=== PATIENT | female | born 1965 | race Asian ===

== ENCOUNTER 2023-07-07 16:42 | Inpatient (IN) | payer BC ==
[~2023-07-07] VITALS: Ht 152.4 cm; Wt 59.9 kg
[2023-07-07 17:24] LABS: BASOPHILS # (AUTO) 0.1 K/uL (0.0-0.2); BASOPHILS % (AUTO) 0.7 % (0.0-2.0); EOSINOPHILS # (AUTO) 0.2 K/uL (0.0-0.4); EOSINOPHILS % (AUTO) 2.1 % (0.0-4.0); HEMATOCRIT 37.3 % (36-48); HEMOGLOBIN 12.6 g/dL (12.0-16.0); LYMPHOCYTES # (AUTO) 2.4 K/uL (1.0-5.5); LYMPHOCYTES % (AUTO) 31.6 % (20.5-51.5); MEAN CORPUSCULAR HEMOGLOBIN 30 pg (27-31); MEAN CORPUSCULAR HGB CONC 34 % (32-36); MEAN CORPUSCULAR VOLUME 89 fL (79.0-98.0); MONOCYTES # (AUTO) 0.6 K/uL (0.0-1.0); MONOCYTES % (AUTO) 8.2 % (1.7-9.3); NEUTROPHILS # (AUTO) 4.3 K/uL (1.8-7.7); NEUTROPHILS % (AUTO) 57.4 % (40.0-70.0); PLATELET COUNT (AUTO) 403 K/uL (130-430); RED BLOOD CELL COUNT(AUTO) 4.18 MIL/uL (4.2-6.2); RED CELL DISTRIBUTION WIDTH 13.6 % (9.0-15.0); WHITE BLOOD COUNT (AUTO) 7.5 K/uL (4.8-10.8)
[2023-07-07 17:45] LABS: PROTHROMBIN TIME 9.9 SECS (9.5-12.5)
[2023-07-07 17:47] LABS: ALBUMIN 3.5 g/dL (3.4-4.8); CALCIUM 9.7 mg/dL (8.4-11.0); CREATININE 0.62 mg/dL (0.55-1.30); POTASSIUM 4.1 mmol/L (3.5-5.1); TOTAL BILIRUBIN 0.3 mg/dL (0.0-1.0); TOTAL PROTEIN, SERUM 8.3 g/dL (6.4-8.3)
[2023-07-07 18:05] VITALS: BP_SYST 114; PULSE 66; RESP 18; TEMP 98.6; O2SAT 99
[2023-07-07] MEDS ORDERED: MORPHINE 4 MG INJ. 4 MG/ML VIAL IVP PRN (19:45)
[2023-07-07] MEDS: MORPHINE 2 MG/ML INJ. SYRINGE IVP PRN (20:09)
[2023-07-07 20:50] VITALS: BP_SYST 130; PULSE 62; RESP 18; TEMP 98; O2SAT 99
[2023-07-07] MEDS ORDERED: OXYIR5 PO (21:05)
[2023-07-07] MEDS ORDERED: ASPI-1393 PO (21:05)
[2023-07-07] MEDS ORDERED: ACET325T53 PO (21:05)
[2023-07-07] MEDS ORDERED: METH-800 PO (21:05)
[2023-07-07] MEDS ORDERED: DOCU-156 PO (21:05)
[2023-07-07] MEDS ORDERED: ONDANSETRON HCL 4 MG/2 ML VIAL IVP PRN (22:15)
[2023-07-07] MEDS ORDERED: NALOXONE HCL 0.4 MG/ML AMP (NARCAN) IVP PRN (22:15)
[2023-07-07] MEDS ORDERED: LORazepam 2 MG/ML VIAL IVP PRN (22:15)
[2023-07-07 22:22] LABS: BILIRUBIN,URINE NEGATIVE (NEGATIVE); BLOOD, URINE NEGATIVE (NEGATIVE); CLARITY/URINE CLEAR (CLEAR); COLOR,URINE YELLOW (YELLOW); GLUCOSE,URINE NEGATIVE (NEGATIVE); KETONES,URINE NEGATIVE (NEGATIVE); LEUKOCYTE ESTERASE ,URINE TRACE (NEGATIVE); NITRITE, URINE NEGATIVE (NEGATIVE); PROTEIN URINE NEGATIVE (NEGATIVE); UROBILINOGEN,URINE 0.2 (0.2-1.0)
[2023-07-07 22:28] LABS: BACTERIA,URINE MODERATE /HPF (None Seen); MUCUS,URINE 1+ /LPF (None Seen); RBC,URINE 0-3 /HPF (0-3)
[2023-07-07] MEDS: D5/0.45 NS 1,000 ML IV SCH (22:42)
[2023-07-08] VITALS (8 sets, daily range): BP systolic 123–132; PULSE 62–105; RESP 16–20; TEMP 97.8–98.2; O2SAT 94–99
[2023-07-08 05:42] LABS: BASOPHILS % (AUTO) 0.7 % (0.0-2.0); EOSINOPHILS # (AUTO) 0.2 K/uL (0.0-0.4); EOSINOPHILS % (AUTO) 2.9 % (0.0-4.0); HEMATOCRIT 35.3 % (36-48); HEMOGLOBIN 11.8 g/dL (12.0-16.0); LYMPHOCYTES # (AUTO) 1.7 K/uL (1.0-5.5); MEAN CORPUSCULAR HEMOGLOBIN 31 pg (27-31); MEAN CORPUSCULAR HGB CONC 34 % (32-36); MEAN CORPUSCULAR VOLUME 91 fL (79.0-98.0); MONOCYTES # (AUTO) 0.5 K/uL (0.0-1.0); MONOCYTES % (AUTO) 9.8 % (1.7-9.3); NEUTROPHILS # (AUTO) 2.8 K/uL (1.8-7.7); NEUTROPHILS % (AUTO) 53.6 % (40.0-70.0); PLATELET COUNT (AUTO) 376 K/uL (130-430); RED BLOOD CELL COUNT(AUTO) 3.88 MIL/uL (4.2-6.2); RED CELL DISTRIBUTION WIDTH 13.1 % (9.0-15.0); WHITE BLOOD COUNT (AUTO) 5.3 K/uL (4.8-10.8)
[2023-07-08 05:49] LABS: CALCIUM 9.4 mg/dL (8.4-11.0); CREATININE 0.71 mg/dL (0.55-1.30); POTASSIUM 4.3 mmol/L (3.5-5.1)
[2023-07-08] MEDS ORDERED: ceFAZolin SODIUM 2 GM VIAL ONE (08:12)
[2023-07-08] MEDS: fentaNYL CITRATE/PF 100 MCG/2 ML AMP ONE (09:16)
[2023-07-08] MEDS ORDERED: hydrALAZINE HCL 20 MG/ML VIAL IV PRN (11:30)
[2023-07-08] MEDS ORDERED: ONDANSETRON HCL 4 MG/2 ML VIAL IVP PRN (11:30)
[2023-07-08] MEDS ORDERED: NALOXONE HCL 0.4 MG/ML AMP (NARCAN) IVP PRN (11:30)
[2023-07-08] MEDS: HYDROmorphone 1 MG/ML INJ. CARTRIDGE IVP PRN ×2 (11:37→12:00)
[2023-07-08] MEDS: HYDROmorphone 1 MG/ML INJ. CARTRIDGE ONE (11:58)
[2023-07-08] MEDS: CEFAZOLIN 1 GM IVPB PREMIX 50 ML IV SCH (13:51)
[2023-07-09 00:11] VITALS: BP_SYST 120; PULSE 68; RESP 15; TEMP 97.2; O2SAT 99
[2023-07-09 02:20] VITALS: RESP 22; TEMP 96.8
[2023-07-09] MEDS ORDERED: NALOXONE HCL 0.4 MG/ML AMP (NARCAN) IVP PRN (07:15)
[2023-07-09 08:00] VITALS: BP_SYST 123; PULSE 67; RESP 16; TEMP 98.1; O2SAT 99
[2023-07-09] MEDS: ACETAMINOPHEN 500 MG TABLET PO PRN (08:21)
[2023-07-09] MEDS: ASPIRIN 81 MG TABLET(ECOTRIN) PO SCH (08:21)
[2023-07-09 13:00] VITALS: BP_SYST 121; PULSE 65; RESP 18; TEMP 97.2; O2SAT 97
[2023-07-09] MEDS ORDERED: HYDR-3919 PO (13:12)
[2023-07-09] MEDS ORDERED: HYDR-3927 PO (13:12)
[2023-07-09 15:01] VITALS: BP_SYST 119; PULSE 69; RESP 18; TEMP 98.3; O2SAT 99
[2023-07-09 16:01] VITALS: BP_SYST 122; PULSE 66; RESP 17; TEMP 97.8; O2SAT 98
[2023-07-09] MEDS: HYDROcodone/ACETAMIN 5-325 MG TAB (NORCO/ VICODIN) PO PRN (16:17)
== END 2023-07-09 17:15 | DRG 494 ==
LOC: SED 16:42 → SMU 19:34
PROVIDERS: ADMIT Preventive Medicine Preventive Medicine/Occupational Environmental Medicine; ATTEND Preventive Medicine Preventive Medicine/Occupational Environmental Medicine
PROC: 0YPBXYZ Removal of Other Device from Left Lower Extremity, External Approach (ICD-10-PCS; 2023-07-08)
PROC: 2W3MX1Z Immobilization of Left Lower Extremity using Splint (ICD-10-PCS; 2023-07-08)
PROC: 0QSH04Z Reposition Left Tibia with Internal Fixation Device, Open Approach (ICD-10-PCS; principal; 2023-07-08 08:12)
DX: S82.202A Unspecified fracture of shaft of left tibia, initial encounter for closed fracture (principal); S82.402A Unspecified fracture of shaft of left fibula, initial encounter for closed fracture; S82.64XA Nondisplaced fracture of lateral malleolus of right fibula, initial encounter for closed fracture; S62.306A Unspecified fracture of fifth metacarpal bone, right hand, initial encounter for closed fracture; S92.212A Displaced fracture of cuboid bone of left foot, initial encounter for closed fracture; X58.XXXA Exposure to other specified factors, initial encounter; Y93.89 Activity, other specified; Y92.89 Other specified places as the place of occurrence of the external cause; Y99.8 Other external cause status
CPT/HCPCS: 36415; 71045; 73700-TC; 76000; 80048; 80053; 81000; 81001; 81015; 85025; 85610; 85730; 86886; 86900; 86901; 87081; 87086; 93005; 97110-GP; 97116-GP; 97530-GP; 99285; J0690; J1100; J1170; J1885; J2270; J2704; J3010; J3490; J7120